=== PATIENT | male | born 2000 | race Caucasian/White ===

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

== ENCOUNTER 2019-05-26 10:44 | Emergency (ER) | payer MEDICAID ==
[2019-05-26 10:51] VITALS: BP 140/69
[2019-05-26] MEDS ORDERED: PREDNISONE 20 MG TABLET PO ONE (11:11)
--- NOTE | 2019-05-26 11:14 | ER Document Report ---
HPI - HPI Time Seen by Provider: 05/26/19 11:08 Pain Level: 2 Notes: Patient is a 19-year-old male with history of eczema presenting to the emergency department with chief complaint plaints of eczema flareup. Patient reports he takes multiple czak-sil-jrosugt creams to manage his eczema however every once in a while he gets out of control. Patient reports this flareup has been going on for several days. He denies any fever. Past Medical History - General Information source: Patient - Social History Smoking Status: Current Every Day Smoker Frequency of alcohol use: None Drug Abuse: None Family History: Reviewed & Not Pertinent, Other - eczema in father and grandfather Pulmonary Medical History: Reports: Hx Asthma Renal/ Medical History: Denies: Hx Peritoneal Dialysis Skin Medical History: Reports Hx Eczema - Immunizations Immunizations up to date: Yes Hx Diphtheria, Pertussis, Tetanus Vaccination: Yes Vertical Provider Document - CONSTITUTIONAL Notes: PHYSICAL EXAMINATION: GENERAL: Well-appearing, well-nourished and in no acute distress. HEAD: Atraumatic, normocephalic. EYES: Pupils equal round extraocular movements intact, conjunctiva are normal. ENT: Nares patent NECK: Normal range of motion LUNGS: No respiratory distress Musculoskeletal: Normal range of motion NEUROLOGICAL: Normal speech, normal gait. PSYCH: Normal mood, normal affect. SKIN: Scaly rash noted to abdomen, arms and face. - INFECTION CONTROL TRAVEL OUTSIDE OF THE [place] IN LAST 30 DAYS: No Course - Re-evaluation Re-evalutation: Patient will be started on a course of prednisone. Patient reports he has an appointment with his primary care provider for Wednesday. - Vital Signs Vital signs: Temp Pulse Resp BP Pulse Ox 98.2 F 92 20 140/69 H 97 05/26/19 10:48 05/26/19 10:48 05/26/19 10:48 05/26/19 10:48 05/26/19 10:48 Discharge - Discharge Clinical Impression: Eczema Qualifiers: Eczema type: unspecified Qualified Code(s): L30.9 - Dermatitis, unspecified Condition: Stable Disposition: HOME, SELF-CARE Additional Instructions: You were seen in the emergency department today for a flareup of her eczema. Pl ease take the prednisone as discussed. Keep the appointment you have with your primary care provider scheduled for Wednesday. Please return to the emergency department with any new or worsening symptoms. Prescriptions: Prednisone [Deltasone 10 mg Tablet] 10 mg PO ASDIR PRN #21 tablet PRN Reason: Forms: Return to Work
== END 2019-05-26 11:16 | disposition home or self-care (01) ==
LOC: ER 10:44
DX: L30.9 Dermatitis, unspecified (principal); Z79.899 Other long term (current) drug therapy; F17.200 Nicotine dependence, unspecified, uncomplicated
CPT/HCPCS: 99283; J7512

== ENCOUNTER 2020-06-17 00:25 | Emergency (ER) | payer MEDICAID ==
[2020-06-17] MEDS ORDERED: PREDNISONE 20 MG TABLET PO ONE (04:07)
[2020-06-17 04:19] VITALS: BP 139/67
--- NOTE | 2020-06-17 04:45 | ER Document Report ---
Entered by AMELIA DENSON SCRIBE 06/17/20 0343 Acting as scribe for:DENA CLARK IV, MD ED General - General Chief Complaint: Skin Problem Stated Complaint: RASH/ECZEMA FLARE UP Time Seen by Provider: 06/17/20 03:24 Primary Care Provider: RANDEE SHAW MD [HONORARY] - Follow up as needed Mode of Arrival: Ambulatory Information source: Patient Notes: This 20 year old male patient with a history of eczema presents to the ED today with complaints of a flare-up. Patient reports diffuse eczema to his face, neck, chest, and bilateral upper and lower extremities. He states that he takes Zyrtec, Hydroxyzine at night, and applies Clobetasol topical prn. Denies any other complaints. TRAVEL OUTSIDE OF THE [place] IN LAST 30 DAYS: No - Related Data Allergies/Adverse Reactions: No Known Allergies Allergy (Verified 05/26/19 10:49) Past Medical History - General Information source: Patient - Social History Smoking Status: Never Smoker Cigarette use (# per day): No Chew tobacco use (# tins/day): No Smoking Education Provided: No Frequency of alcohol use: Rare Drug Abuse: None Family History: Reviewed & Not Pertinent, Other - eczema in father and grandfather Patient has suicidal ideation: No Patient has homicidal ideation: No Pulmonary Medical History: Reports: Hx Asthma Skin Medical History: Reports Hx Eczema - Immunizations Immunizations up to date: Yes Hx Diphtheria, Pertussis, Tetanus Vaccination: Yes Review of Systems - Review of Systems Constitutional: No symptoms reported EENT: No symptoms reported Cardiovascular: No symptoms reported Respiratory: No symptoms reported Gastrointestinal: No symptoms reported Genitourinary: No symptoms reported Male Genitourinary: No symptoms reported Musculoskeletal: No symptoms reported Skin: See HPI Hematologic/Lymphatic: No symptoms reported Neurological/Psychological: No symptoms reported -: Yes All other systems reviewed and negative Physical Exam - Vital signs Vitals: Temp Pulse Resp BP Pulse Ox 98.1 F 100 18 131/80 H 99 06/17/20 00:29 06/17/20 00:29 06/17/20 00:29 06/17/20 00:29 06/17/20 00:29 - General General appearance: Alert In distress: None - HEENT Head: Normocephalic, Atraumatic Eyes: Normal Pupils: PERRL - Respiratory Respiratory status: No respiratory distress Chest status: Nontender Breath sounds: Normal Chest palpation: Normal - Cardiovascular Rhythm: Regular Heart sounds: Normal auscultation Murmur: No Friction rub: No Gallop: None auscultated - Abdominal Inspection: Normal Distension: No distension Bowel sounds: Normal Tenderness: Nontender - Abdomen soft Organomegaly: No organomegaly - Back Back: Normal, Nontender - Extremities General upper extremity: Normal inspection General lower extremity: Normal inspection - Neurological Neuro grossly intact: Yes Orientation: AAOx4 Rob Coma Scale Eye Opening: Spontaneous [place] Coma Scale Verbal: Oriented Rob Coma Scale Motor: Obeys Commands [place] Coma Scale Total: 15 - Psychological Associated symptoms: Normal affect, Normal mood - Skin Skin irregularity: other - Large, confluent eczematous patches to neck, anterior chest and lower face. Nonconfluent areas of eczema on upper and lower extremites Course - Re-evaluation Re-evalutation: 06/17/20 04:08 Diagnosis and plan of care discussed with patient. All questions were answered prior to discharge. Emergency signs and symptoms, reasons to return to the emergency department discussed with patient. - Vital Signs Vital signs: Temp Pulse Resp BP Pulse Ox 98.1 F 61 18 139/67 H 100 06/17/20 00:29 06/17/20 04:19 06/17/20 04:19 06/17/20 04:19 06/17/20 04:19 Discharge - Discharge Clinical Impression: Eczema Qualifiers: Eczema type: unspecified Qualified Code(s): L30.9 - Dermatitis, unspecified Condition: Stable Disposition: HOME, SELF-CARE Additional Instructions: Return to the Emergency Department without delay if any worse. HOME CARE INSTRUCTIONS & INFORMATION: Thank you for choosing us for your medical needs. We hope you're satisfied with the care you received. After you leave, you must properly care for your problem and, at the same time, observe its progress. Any condition can change. Some illnesses can change rapidly over hours or days. If your condition worsens, return to the Emergency Department or see your physician promptly. ABOUT YOUR X-RAYS AND EKG'S: If you had an EKG or X-rays taken, they have been read by the Emergency Physician. The X-rays and EKG's will also be read by a Radiologist or Crane Rigger within 24 hours. If discrepancies are noted, you will be notified by telephone. Please be certain the ED has a correct telephone number & address where you can be reached. Also, realize that some fractures or abnormalities do not show up on initial X-rays. If your symptoms continue, see your physician. ABOUT YOUR LABORATORY TEST: If you had laboratory tests, the results have been reviewed by the Emergency Physician. Some test results (for example cultures) may not be available for several days. You will be contacted if any test result shows you need additional treatment. Please be certain the ED has a correct telephone number and address where you can be reached. ABOUT YOUR MEDICATIONS: You will receive instructions on how to take your medicine on the prescription label you receive. Additional information may be provided by the Pharmacy. If you have questions afterwards, call the ED for clarification or further instructions. Some prescribed medications may cause drowsiness. Do not perform tasks such as driving a car or operating machinery without consulting your Pharmacist. If you feel you need a refill of pain medic ation, your condition will need re-evaluation. Please do not call for a refill of any medication. ABOUT YOUR SIGNATURE: Signature of this document acknowledges to followin. Understanding that you received emergency treatment and that you may be released before al medical problems are known or treated. Please be certain the ED has a correct phone number & address where you can be reached. 2. Acknowledgement that you will arrange for follow-up care as recommended. 3. Authorization for the Emergency Physician to provide information to your follow-up Physician in order to maximize your care. AT ANY TIME, IF YOUR SYMPTOMS CHANGE SIGNIFICANTLY OR WORSEN OR YOU DEVELOP NEW SYMPTOMS, RETURN TO THE EMERGENCY DEPARTMENT IMMEDIATELY FOR RE-EVALUATION. OUR GOAL IS TO PROVIDE EXCELLENT MEDICAL CARE! WE HOPE THAT WE HAVE MET YOUR EXPECTATIONS DURING YOUR EMERGENCY DEPARTMENT VISIT AND THAT YOU FEEL YOU HAVE RECEIVED EXCELLENT CARE! Prescriptions: Prednisone [Deltasone 20 mg Tablet] 3 tab PO DAILY 4 Days #12 tablet Referrals: RANDEE SHAW MD [HONORARY] - Follow up as needed I personally performed the services described in the documentation, reviewed and edited the documentation which was dictated to the scribe in my presence, and it accurately records my words and actions.
== END 2020-06-17 04:20 | disposition home or self-care (01) ==
LOC: ER 00:25
DX: L30.9 Dermatitis, unspecified (principal); R21 Rash and other nonspecific skin eruption; Z79.899 Other long term (current) drug therapy; J45.909 Unspecified asthma, uncomplicated
CPT/HCPCS: 99282; J7512

== ENCOUNTER 2020-07-23 16:50 | Emergency (ER) | payer MEDICAID ==
[2020-07-23 17:00] VITALS: BP 144/86
[2020-07-23] MEDS ORDERED: DEXAMETHASONE SOD PHOS INJ 10 MG/1 ML VIAL IM ONE (17:36)
--- NOTE | 2020-07-23 17:46 | ER Document Report ---
HPI - HPI Time Seen by Provider: 07/23/20 17:27 Notes: 20-year-old male with a history of eczema presents to the emergency room for evaluation for an exacerbation of his chronic eczema. Patient states that he typically takes steroid ointment to help manage his eczema however he is run out of it and yesterday he was around a dog which does exacerbate his eczema. Patient states that he has been for thoroughly followed for his eczema with [facility] and [place], states that they typically prescribed him prednisone to help manage his exacerbations with his chronic eczema. Denies fevers, chills, chest pain,palpitations, shortness of breath, dyspnea, nausea, vomiting, diarrhea, abdominal pain, hematuria,blurred vision, double vision, loss of vision, speech changes, LH, dizziness, syncope, headaches, wheezing, ST, URI, neck pain, weakness, bowel or bladder dysfunction, saddle anesthesia, numbness or tingling in bilateral upper or lower extremities equally, muscle paralysis, weakness in bilateral upper or lower extremities equally. Denies IV drug use. MEDICATIONS: I agree with the patient medications as charted by the RN. ALLERGIES: I agree with the allergies as charted by the RN. PAST MEDICAL HISTORY/PAST SURGICAL HISTORY: Reviewed and agree as charted by RN. SOCIAL HISTORY: Reviewed and agree as charted by RN. FAMILY HISTORY: No significant familial comorbid conditions directly related to patient complaint EXAM: Reviewed vital signs as charted by RN. REVIEW OF SYSTEMS:reviewed vital signs by RN CONSTITUTIONAL : Denies fever, chills, or sweats. Denies recent illness. EENT: Denies eye, ear, throat, or mouth pain or symptoms. Denies nasal or sinus congestion or discharge. Denies throat, tongue, or mouth swelling or difficulty swallowing. CARDIOVASCULAR: Denies chest pain. Denies palpitations or racing or irregular heart beat. Denies ankle edema. RESPIRATORY: Denies cough, cold, or chest congestion. Denies shortness of breath, difficulty breathing, or wheezing. GASTROINTESTINAL: Denies abdominal pain or distention. Denies nausea, vomiting, or diarrhea. Denies blood in vomitus, stools, or per rectum. Denies black, tarry stools. Denies constipation. GENITOURINARY: Denies difficulty urinating, painful urination, burning, frequency, blood in urine, or discharge. MUSCULOSKELETAL: Denies back or neck pain or stiffness. Denies joint pain or swelling. SKIN: Reports full body rash. denies rash, lesions or sores. HEMATOLOGIC : Denies easy bruising or bleeding. LYMPHATIC: Denies swollen, enlarged glands. NEUROLOGICAL: Denies confusion or altered mental status. Denies passing out or loss of consciousness. Denies dizziness or lightheadedness. Denies headache. Denies weakness or paralysis or loss of use of either side. Denies problems with gait or speech. Denies sensory loss, numbness, or tingling. Denies seizures. PSYCHIATRIC: Denies anxiety or stress. Denies depression, suicidal ideation, or homicidal ideation. ALL OTHER SYSTEMS REVIEWED AND NEGATIVE. Dictation was performed using [employer] voice recognition software PHYSICAL EXAMINATION: GENERAL: Well-appearing, well-nourished and in no acute distress. HEAD: Atraumatic, normocephalic. EYES: Pupils equal round and reactive to light, extraocular movements intact, s clera anicteric, conjunctiva are normal. ENT: Nares patent, oropharynx clear without exudates. Moist mucous membranes. NECK: Normal range of motion, supple without lymphadenopathy LUNGS: Breath sounds clear to auscultation bilaterally and equal. No wheezes rales or rhonchi. HEART: Regular rate and rhythm without murmurs ABDOMEN: Soft, nontender, nondistended abdomen. No guarding, no rebound. No masses appreciated. Musculoskeletal: Normal range of motion, no pitting or edema. No cyanosis. NEUROLOGICAL: Cranial nerves grossly intact. Normal speech, normal gait. Normal sensory, motor exams PSYCH: Normal mood, normal affect. SKIN: Warm, Dry, normal turgor, no rashes or lesions noted. Macular papular rash on bilateral arms, leg and chest without erythema, induration or warmth to touch with noted scaling. Past Medical History - General Information source: Patient - Social History Smoking Status: Unknown if Ever Smoked Family History: Reviewed & Not Pertinent, Other - eczema in father and grandfather Pulmonary Medical History: Reports: Hx Asthma Renal/ Medical History: Denies: Hx Peritoneal Dialysis Skin Medical History: Reports Hx Eczema - Immunizations Immunizations up to date: Yes Hx Diphtheria, Pertussis, Tetanus Vaccination: Yes Vertical Provider Document - CONSTITUTIONAL Agree With Documented VS: Yes Exam Limitations: No Limitations General Appearance: WD/WN - INFECTION CONTROL TRAVEL OUTSIDE OF THE [place] IN LAST 30 DAYS: No Course - Re-evaluation Re-evalutation: 07/23/20 17:46 Afebrile, vital stable no distress, HR reduced to 106. advised to follow up with pcp and masticator within 24-48 hours. use medications as directed. avoid allergens, such as being around dogs. After performing a Medical Screening Examination, I estimate there is LOW risk for any life threatening rash. At this time the patient looks extremely well and there are no signs of systemic infection, however this may change at any time and the rash may change. I have reevaluated this patient multiple times and no significant life threatening changes are noted. The patient and I have discussed the diagnosis and risks, and we agree with discharging home with close follow-up with the understanding that symptoms and presentations can change. We also discussed returning to the Emerg ency Department immediately if new or worsening symptoms occur. We have discussed the symptoms which are most concerning (e.g., changing or worsening pain, fever, numbness, weakness, cool or painful digits) that necessitate immediate return. 07/23/20 17:54 - Vital Signs Vital signs: Temp Pulse Resp BP Pulse Ox 98.1 F 122 H 20 144/86 H 99 07/23/20 16:59 07/23/20 16:59 07/23/20 16:59 07/23/20 16:59 07/23/20 16:59 Discharge - Discharge Clinical Impression: Eczema Qualifiers: Eczema type: unspecified Qualified Code(s): L30.9 - Dermatitis, unspecified Condition: Stable Disposition: HOME, SELF-CARE Instructions: Atopic Dermatitis (Eczema) ([facility]) Additional Instructions: You were given 10 mg of dexamethasone steroid, you also were prescribed prednisone for 5-day therapy as well as steroid ointment. Please follow-up with your masticator as well as your primary care provider. Please avoid itching. Please take Benadryl as needed for antihistamine. Continue taking cool baths and using Vaseline in her typical daily regimen. Please avoid allergens such as dogs which are exposed to is likely exacerbated your eczema. Return immediately for any new or worsening symptoms. Follow up with primary care provider, call tomorrow to make followup appointment. Prescriptions: Triamcinolone Acetonide [Aristocort 0.025% Cream] 1 applic TP BID #80 gram Prednisone [Deltasone 20 mg Tablet] 3 tab PO DAILY 5 Days #15 tablet Referrals: TRUDI MI MD [NO LOCAL MD] - Follow up as needed SHABANA LEONARD DO [ACTIVE STAFF] - Follow up as needed
== END 2020-07-23 17:52 | disposition home or self-care (01) ==
LOC: ER 16:50
DX: L30.9 Dermatitis, unspecified (principal); J45.909 Unspecified asthma, uncomplicated
CPT/HCPCS: 99284; 96372; J1100

== ENCOUNTER 2020-09-01 23:58 | Emergency (ER) | payer MEDICAID ==
[2020-09-02 00:08] VITALS: BP 138/76
[2020-09-02] MEDS ORDERED: DEXAMETHASONE SOD PHOS INJ 10 MG/1 ML VIAL IM ONE (00:41)
--- NOTE | 2020-09-02 00:47 | ER Document Report ---
ED General - General Stated Complaint: RASH OVER BODY/FACE Notes: Is a 20-year-old white male with a history of atopic dermatitis who presents the emergency department today with a chief complaint of rash all over. He states this is typical of his eczema flares. He states that started getting bad yesterday. He states he usually takes hydroxyzine at home and prednisone when needed. Said he did not want to come in but he ran out of prednisone and that the rash is getting worse. He states there is nothing unusual about this this is typical of his flares. He states it seems to be worse on his face. He admits that there is an area to the left eye of redness irritation and drainage as well that started this morning when he woke. States the eye was hard to open. Denies any visual disturbance or pain. States it does not feel abnormal in any way. Denies any headache or dizziness. No nausea or vomiting. No sore throat or chest pain. No fever. no Recent travel or known sick contact. TRAVEL OUTSIDE OF THE [place] IN LAST 30 DAYS: No - Related Data Allergies/Adverse Reactions: No Known Allergies Allergy (Verified 07/23/20 17:25) Past Medical History - Social History Smoking Status: Unknown if Ever Smoked Family History: Reviewed & Not Pertinent, Other - eczema in father and grandfather Pulmonary Medical History: Reports: Hx Asthma Renal/ Medical History: Denies: Hx Peritoneal Dialysis Skin Medical History: Reports Hx Eczema - Immunizations Immunizations up to date: Yes Hx Diphtheria, Pertussis, Tetanus Vaccination: Yes Review of Systems - Review of Systems Constitutional: denies: Fever EENT: denies: Ear discharge Cardiovascular: denies: Syncope Respiratory: denies: Hemoptysis Gastrointestinal: denies: Poor appetite Genitourinary: denies: Incontinence Male Genitourinary: denies: Testicular pain Musculoskeletal: denies: Deformity Skin: denies: Change in hair/nails Hematologic/Lymphatic: denies: Easy bruising Neurological/Psychological: denies: Homicidal ideation Physical Exam - Vital signs Vitals: Temp Pulse Resp BP Pulse Ox 97.4 F 93 12 138/76 H 99 09/02/20 00:05 09/02/20 00:05 09/02/20 00:05 09/02/20 00:05 09/02/20 00:05 - General General appearance: Appears well, Alert In distress: None - HEENT Head: Normocephalic, Atraumatic, Other - Dry excoriated erythematous eczema issues like rash noted diffusely about the face Eyes: Other - Left conjunctiva with dried crusting about the eyes particularly on the left. The right conjunctiva is noninjected. Extraocular movements intact: Yes Eyelashes: Matted Pupils: PERRL Ears: Normal External canal: Normal Tympanic membrane: Normal Mouth/Lips: Normal Mucous membranes: Normal Pharynx: Normal Neck: Normal, Supple - Respiratory Respiratory status: No respiratory distress Chest status: Nontender Breath sounds: Normal Chest palpation: Normal - Cardiovascular Rhythm: Regular Heart sounds: Normal auscultation - Neurological Neuro grossly intact: Yes Cognition: Normal Orientation: AAOx4 - Psychological Associated symptoms: Normal affect, Normal mood - Skin Skin Color: Other - Red patches plaques with excoriations mostly macular in nature noted diffusely about the body. Course - Re-evaluation Re-evalutation: 09/02/20 00:47 Physical consistent with eczema. Severe flare. Suspect in a related allergic conjunctivitis. Offered patient ophthalmic antihistamine drops. He declined stating it was not bothering him he agreed to use warm compress applications and do lid scrubs. States he wants to try the steroids first and if that does not work he states he will see his doctor across the street, Dr. Cedeno for further care and management. Patient is of sound mind and mental capacity to make informed decision. He is aware he is free to return here at any time to continue his care. Counseled him regarding the importance of outpatient follow- up in the next 1 to 2 days for reevaluation. Advised to return here or any ER immediately with any new, persistent or worsening symptoms. He verbalized understood and agreed. - Vital Signs Vital signs: Temp Pulse Resp BP Pulse Ox 97.4 F 93 12 138/76 H 99 09/02/20 00:05 09/02/20 00:05 09/02/20 00:05 09/02/20 00:05 09/02/20 00:05 Discharge - Discharge Clinical Impression: Rash, History of eczema Condition: Stable Disposition: HOME, SELF-CARE Instructions: Atopic Dermatitis (Eczema) ([facility]) Additional Instructions: Follow-up with your doctor in the next 1 to 2 days for reevaluation. Please return here any ER immediately with any new, persistent or worsening symptoms. Prescriptions: Prednisone [Deltasone 20 mg Tablet] 40 mg PO DAILY #10 tablet Referrals: JEANNINE CEDENO MD [NO LOCAL MD] - Follow up as needed
== END 2020-09-02 01:10 | disposition home or self-care (01) ==
LOC: ER 23:58
DX: L20.9 Atopic dermatitis, unspecified (principal); J45.909 Unspecified asthma, uncomplicated
CPT/HCPCS: 99283; 96372; J1100